=== PATIENT | female | born 1960 | race Caucasian/White ===

== ENCOUNTER 2017-05-23 07:25 | Emergency (ER) | payer MEDICAID ==
[~2017-05-23] VITALS: Ht 160 cm; Wt 62.1 kg
[2017-05-23 07:32] VITALS: BP_SYST 111
[2017-05-23] MEDS ORDERED: ONDANSETRON 4 MG ODT TAB PO ONE (07:45)
[2017-05-23] MEDS ORDERED: IBUPROFEN 800 MG TABLET PO ONE (07:45)
[2017-05-23 07:53] LABS: BILIRUBIN,URINE 1+ (NEGATIVE); CLARITY/URINE CLEAR (CLEAR); COLOR,URINE YELLOW (YELLOW); GLUCOSE,URINE NEGATIVE (NEGATIVE); KETONES,URINE 1+ (NEGATIVE); LEUKOCYTE ESTERASE ,URINE NEGATIVE (NEGATIVE); NITRITE, URINE NEGATIVE (NEGATIVE); PH,URINE 5.5 (5.0-8.0); PROTEIN URINE NEGATIVE (NEGATIVE); UROBILINOGEN,URINE 0.2 (0.2-1.0)
[2017-05-23 07:54] LABS: BLOOD, URINE TRACE (NEGATIVE)
[2017-05-23 08:02] LABS: BACTERIA,URINE RARE /HPF (None Seen); RBC,URINE 0-3 /HPF (0-3); WBC,URINE NONE SEEN /HPF (0-3)
[2017-05-23 08:03] LABS: MUCUS,URINE None Seen /LPF (None Seen)
[2017-05-23 08:08] LABS: HEMATOCRIT 40.6 % (36-48); HEMOGLOBIN 13.3 g/dL (12.0-16.0); MEAN CORPUSCULAR HEMOGLOBIN 29 pg (27-31); MEAN CORPUSCULAR HGB CONC 33 % (32-36); MEAN CORPUSCULAR VOLUME 87 fL (79.0-98.0); PLATELET COUNT (AUTO) 210 K/uL (130-430); RED BLOOD CELL COUNT(AUTO) 4.64 MIL/uL (4.2-6.2); RED CELL DISTRIBUTION WIDTH 12.7 % (9.0-15.0); WHITE BLOOD COUNT (AUTO) 2.8 K/uL (4.8-10.8)
[2017-05-23 08:13] LABS: CALCIUM 9.3 mg/dL (8.4-11.0); CREATININE 0.49 mg/dL (0.55-1.30)
[2017-05-23 08:18] LABS: ALBUMIN 4.1 g/dL (3.4-4.8); TOTAL BILIRUBIN 0.4 mg/dL (0.0-1.0)
[2017-05-23 09:15] VITALS: BP_SYST 107
== END 2017-05-23 09:15 | disposition home or self-care (01) ==
LOC: SED 07:25
DX: K59.00 Constipation, unspecified (principal); G43.909 Migraine, unspecified, not intractable, without status migrainosus; R30.0 Dysuria; Z91.010 Allergy to peanuts; Z88.0 Allergy status to penicillin; Z91.018 Allergy to other foods; Z87.442 Personal history of urinary calculi
CPT/HCPCS: 36415; 74176; 80053; 81000; 85007; 85027; 99285; Q0162

== ENCOUNTER 2019-08-06 15:42 | Emergency (ER) | payer MEDICAID ==
[~2019-08-06] VITALS: Ht 160 cm; Wt 71.2 kg
--- NOTE | 2019-08-06 15:50 | NUR ---
PATIENT TO ER #7 ISOLATION, AGRONOMIST, SAO2, ABP; HX OF COUGH FOR THREE DAYS AND EVALUATION AT URGENT CARE WHERE LOW SAO2 WAS REPORTED AND RECOMMENDATION TO F/U ER
--- NOTE | 2019-08-06 15:50 | NUR ---
Patient to ER bed 07 to gown for evaluation. Side rails up.
[2019-08-06 15:58] VITALS: BP_SYST 120
--- NOTE | 2019-08-06 16:05 | NUR ---
assumption of care received, Pt brought by self,ambulatory, A&Ox4, pt presents to ER with cough x 3 days and mild SOB, pt states she was at urgent care and O2 was 89%, current O2 is 99% ,Pt states he had a covid test recently and it was negative, pt afebrile, speaking in full sentences, skin pink and warm, cap refill <3.
--- NOTE | 2019-08-06 16:22 | NUR ---
Dr Silva at bedside examining patient
[2019-08-06 16:55] VITALS: BP_SYST 120
--- NOTE | 2019-08-06 16:56 | NUR ---
Patient given written and verbal discharge instructions and verbalizes understanding. ER MD discussed with patient the results and treatment provided. Patient in stable condition. ID arm band removed. Rx of Prednisone given. Patient educated on pain management and to follow up with PMD. Pain Scale 0/10 Opportunity for questions provided and answered. Medication side effect fact sheet provided.
== END 2019-08-06 16:56 | disposition home or self-care (01) ==
LOC: SED 15:42
DX: R05 Cough (principal); Z88.0 Allergy status to penicillin; Z91.013 Allergy to seafood; Z91.010 Allergy to peanuts
CPT/HCPCS: 71045; 99283

== ENCOUNTER 2021-07-18 07:50 | Emergency (ER) | payer MEDICAID ==
[~2021-07-18] VITALS: Ht 160 cm; Wt 70.3 kg
[2021-07-18 08:08] VITALS: BP_SYST 138
[2021-07-18] MEDS ORDERED: IBUP-1969 PO (09:31)
[2021-07-18] MEDS ORDERED: HYDR-3917 PO (09:31)
--- NOTE | 2021-07-18 10:00 | NUR ---
Patient to ER bed to gown for evaluation. Side rails up
--- NOTE | 2021-07-18 10:05 | NUR ---
ER at bedside examining patient.
--- NOTE | 2021-07-18 11:20 | NUR ---
Ortho shoe applied after kailey taping affected toes. Pt given crutches given. Pt demonstrated appropriate use.
[2021-07-18 11:30] VITALS: BP_SYST 140
--- NOTE | 2021-07-18 11:30 | NUR ---
Patient given written and verbal discharge instructions and verbalizes understanding. ER MD discussed with patient the results and treatment provided. Patient in stable condition. ID arm band removed. Rx of NORCO,IBUOROFEN given. Patient educated on pain management and to follow up with PMD. Pain Scale 0. Opportunity for questions provided and answered. Medication side effect fact sheet provided.
== END 2021-07-18 11:30 | disposition home or self-care (01) ==
LOC: SED 08:13
DX: S93.505A Unspecified sprain of left lesser toe(s), initial encounter (principal); Z88.1 Allergy status to other antibiotic agents; Z91.010 Allergy to peanuts; W22.8XXA Striking against or struck by other objects, initial encounter; Y93.89 Activity, other specified; Y92.89 Other specified places as the place of occurrence of the external cause; Y99.8 Other external cause status
CPT/HCPCS: 99283

== ENCOUNTER 2023-01-16 05:26 | Emergency (ER) | payer MEDICAID ==
[~2023-01-16] VITALS: Ht 162.6 cm; Wt 71.7 kg
[~2023-01-16 05:26] MED LIST: HYDR-3917 PO; IBUP-1969 PO
[2023-01-16 05:34] VITALS: BP_SYST 153; PULSE 85; RESP 18; TEMP 96.6; O2SAT 98
[2023-01-16] MEDS ORDERED: ZIT250 PO (06:25)
[2023-01-16] MEDS ORDERED: PRED50TA PO (06:25)
[2023-01-16 06:35] VITALS: BP_SYST 120; PULSE 78; RESP 16; TEMP 98; O2SAT 98
== END 2023-01-16 06:34 | disposition home or self-care (01) ==
LOC: SED 05:26
DX: J02.9 Acute pharyngitis, unspecified (principal); H66.92 Otitis media, unspecified, left ear; Z88.0 Allergy status to penicillin; Z91.010 Allergy to peanuts; Z91.018 Allergy to other foods; Z79.899 Other long term (current) drug therapy
CPT/HCPCS: 99283